=== PATIENT | female | born 1940 | race Caucasian/White ===

== ENCOUNTER 2020-07-07 11:52 | Inpatient (IN) | payer MEDICARE, OTHER ==
[~2020-07-07] VITALS: Ht 154.9 cm; Wt 68.9 kg
--- NOTE | ~2020-07-07 | OP ---
[address] [address] OPERATIVE REPORT Name: SUE BREAUX Room: [address] IN ..#: [id number] Admission: 07/07/20 Attend Phys: Genaro Kelly, Discharge: 07/10/20 Date of : 44 Report #: [id number] THIS REPORT FOR: //name// cc: Rubina Choi MD, Sarah Beth MD ~ CC: Rubina Kelly DICTATED BY: Alexander Serna DO DATE OF SERVICE: 07/08/2020 PREOPERATIVE DIAGNOSIS: Left comminuted intertrochanteric hip fracture. POSTOPERATIVE DIAGNOSIS: Left comminuted intertrochanteric hip fracture. PROCEDURE PERFORMED: Open reduction and internal fixation with a Molina gamma nail. SURGEON: Trey Skelton DO METEOROLOGY INSTRUCTOR: Alexander Serna DO ANESTHESIA: Spinal. ESTIMATED BLOOD LOSS: 75 mL. COMPLICATIONS: None. DISPOSITION: The patient is stable to PACU. IMPLANTS: Connie cephalomedullary nail. INDICATIONS FOR PROCEDURE: The patient is a 80-year-old female who sustained a mechanical fall from standing last night. She was evaluated at [facility] Emergency Room and found to have a left hip fracture. Recommendation was made for surgical fixation of left hip. Discussed the alternatives, benefits and risks including nonoperative management. The risks were detailed including but not limited to damage to neurovascular structures, continuation of pain, intraoperative fracture, implant failure, postoperative wound healing complications, long-term disability, possible need for repeat surgery in the future and any other imponderables secondary to being taken back to the operative suite such as MD, DVT or pulmonary embolism. The patient and her daughter expressed understanding and wished to proceed with surgery. DESCRIPTION OF PROCEDURE: The patient was met in [place] [address] OPERATIVE REPORT Name: SAEIDSUE Praveen Room: [address] IN [facility].#: [id number] Admission: 07/07/20 Attend Phys: Genaro Kelly, Discharge: 07/10/20 Date of : 44 Report #: [id number] correct side was marked. She was taken back to the operative suite and given a spinal anesthetic by the anesthesia team. She was placed in the supine position on the traction table. The left lower extremity was placed in the traction boot, right lower extremity was placed in a well-padded well leg lopez. All bony prominences were appropriately padded and the patient was secured to the table at multiple points. A preliminary reduction was performed with direct fluoroscopic visualization. This was felt to have adequate reduction of her comminuted intertrochanteric hip fracture. A timeout was performed in which correct patient, side, site, procedure to be performed and antibiotics in the form of 2 grams Ancef being administered was agreed upon by all present in participation. Predominant preliminary landmarks were marked out with radiographic evaluation. The longitudinal axis of the femoral shaft meeting at the greater trochanter. Approximately a 4 cm incision was made at the superior aspect of the greater trochanter. Sharp dissection was taken down to the tip of the greater trochanter. A starting portal was established with a smooth K-wire at the AP and lateral views. This was followed by the entry reamer. Long ball-tipped guidewire was introduced and subsequently reamed to 11.5 down to the isthmus. A 10 x 125 degree Connie gamma nail was inserted. This was felt to have appropriate positioning within the hip. A Nova was introduced from the superior incision to help reduce the apex anterior femoral neck angulation. The guidewire for the lag screw was then introduced and felt to be in appropriate position on the AP and lateral views. This was subsequently measured to be approximately 100. The reamer was introduced to a depth of 95 followed by 100 mm lag screw. A Nova was held on the anterior aspect of the femoral neck at all times to prevent my reduction. The compression was then performed across the fracture site. The proximal set screw was introduced and set. This was locked into place. Attention was then turned distally. The triple sleeve was introduced skin incision and the distal interlock screw was drilled and measured to be at 32.5. This was set in with the locking screw driver license examiner. Final x-rays were taken confirming good position of the cephalomedullary nail and appropriate dissection of the fracture site. All wounds were thoroughly irrigated and lavaged. All instruments were removed. All sponge and needle counts were correct x 2. A layered closure from the proximal incision was made from the iliotibial band, camper's fascia subcutaneous tissue, 2-0 Vicryl was then used for the subcutaneous layer distally as well followed by stapled skin closure Mepilex dressing. The patient was repositioned on the fracture table out of the fracture traction boot and then transferred to the patient cart in stable condition. She was brought to the postanesthesia care unit without issue. By: [id number] 1957Trey Skelton DO /naomie
[2020-07-07 11:53] VITALS: BP 129/62
[2020-07-07] MEDS ORDERED: PRAVACHOL40 MG PO (11:57)
[2020-07-07] MEDS ORDERED: LISINOPRIL-HCT1 EAC1 PO (11:57)
[2020-07-07 12:18] LABS: ABSOLUTE EOSINOPHILS 0.2 thou/uL (0.0-0.7); ABSOLUTE LYMPHOCYTES 4.3 thou/uL (0.8-5.3); ABSOLUTE MONOCYTES 0.9 thou/uL (0.0-1.2); ABSOLUTE NEUTROPHILS 3.6 thou/uL (1.6-8.1); BASOPHILS 0.4 %; EOSINOPHILS 1.9 %; HEMATOCRIT 35.4 % (37.0-47.0); HEMOGLOBIN 12.1 gm/dL (12.0-15.0); LYMPHOCYTES 47.8 %; MCH 30.4 pg (26.0-34.0); MCHC 34.1 g/dL (28.0-37.0); MCV 89.1 fL (80.0-100.0); MONOCYTES 9.5 %; MPV 8.2 fl. (7.2-11.1); NUCLEATED RBCS 0 /100WBC; PLATELET COUNT* 234 thou/uL (150-400); POLYS 40.4 %; RBC 3.98 mil/uL (4.20-5.00)
[2020-07-07 12:26] LABS: APTT 22.7 Seconds (25.0-31.3); CALCIUM 8.3 mg/dL (8.5-10.1); CREATININE 0.8 mg/dL (0.6-1.3); POTASSIUM 3.6 mmol/L (3.5-5.1); PROTIME 10.4 Seconds (9.20-11.50)
[2020-07-07 12:30] LABS: ALBUMIN 3.4 g/dL (3.4-5.0); TOTAL BILIRUBIN 0.3 mg/dL (<0.1-1.0); TOTAL PROTEIN 6.7 g/dL (6.4-8.2)
[2020-07-07 13:56] LABS: URINE BILIRUBIN NEGATIVE (Negative); URINE BLOOD NEGATIVE (Negative); URINE CLARITY CLEAR; URINE COLOR YELLOW; URINE GLUCOSE-RANDOM NEGATIVE (Negative); URINE KETONES NEGATIVE (Negative); URINE LEUKOCYTES-REFLEX NEGATIVE (Negative); URINE NITRITE-REFLEX NEGATIVE (Negative); URINE PROTEIN NEGATIVE (Negative); URINE SPECIFIC GRAVITY 1.015 (1.005-1.030); URINE UROBILINOGEN 0.2 E.U./dl (0.2-1.0)
--- NOTE | 2020-07-07 15:41 | EKG ---
[place] [address] ELECTROCARDIOGRAM REPORT Name: SUE BREAUX Room: [place] [address] ADM IN [facility]#: [id number] Admission: 07/07/20 Attend Phys: Genaro Diaz Discharge: Date of : 44 Date of Service: 07/07/20 1211 Report #: [id number] THIS REPORT FOR: //name// [facility] ED Test Date: 2020-07-07 Test Time: 12:11:23 Pat Name: SUE BREAUX Department: Room: [facility] Gender: F Mortgage Loan Assistant: CCD : 1940 Requested By: Davis Millan Order Number: [id number] MD: Nikos Harrington Measurements Intervals [place] Rate: 60 P: -88 IA: 177 QRS: 62 QRSD: 166 T: 67 QT: 427 QTc: 427 Interpretive Statements Sinus rhythm Baseline artifact no previous ECG available for comparison Electronically Signed On 07-07-2020 15:41:44 CDT by Nikos Harrington [email or web address] <ELECTRONICALLY SIGNED> By: Nikos Harrington MD, [facility] 07/07/20 1541 1211 121 Nikos Harrington MD, [facility] /EPI
[2020-07-07 20:00] VITALS: BP 173/82
[2020-07-07 23:04] VITALS: BP 131/70
[2020-07-07 23:30] VITALS: BP 137/66
[2020-07-08 04:05] LABS: HEMOGLOBIN 11.1 gm/dL (12.0-15.0); MCH 30.5 pg (26.0-34.0); MCHC 34.7 g/dL (28.0-37.0); MPV 8.1 fl. (7.2-11.1); RBC 3.64 mil/uL (4.20-5.00); RDW-CV 13.9 % (10.5-14.5); WBC 10.5 thou/uL (4.0-11.0)
[2020-07-08 04:48] LABS: ALBUMIN 3.1 g/dL (3.4-5.0); CALCIUM 8.1 mg/dL (8.5-10.1); CREATININE 0.8 mg/dL (0.6-1.3); MAGNESIUM 1.8 mg/dL (1.8-2.4); POTASSIUM 3.8 mmol/L (3.5-5.1); TOTAL BILIRUBIN 0.4 mg/dL (<0.1-1.0); TOTAL PROTEIN 6.2 g/dL (6.4-8.2)
[2020-07-08 06:35] VITALS: BP 167/79
[2020-07-08 08:00] VITALS: BP 138/83
[2020-07-08 20:15] VITALS: BP 124/59
[2020-07-09 03:59] LABS: HEMATOCRIT 26.3 % (37.0-47.0); HEMOGLOBIN 9.2 gm/dL (12.0-15.0); MCH 30.8 pg (26.0-34.0); MPV 8.5 fl. (7.2-11.1); RBC 2.99 mil/uL (4.20-5.00); RDW-CV 13.9 % (10.5-14.5)
[2020-07-09 04:14] LABS: CALCIUM 7.3 mg/dL (8.5-10.1); CREATININE 0.8 mg/dL (0.6-1.3); MAGNESIUM 1.8 mg/dL (1.8-2.4); POTASSIUM 3.6 mmol/L (3.5-5.1)
[2020-07-09 08:00] VITALS: BP 141/79
[2020-07-09 19:45] VITALS: BP 158/78
[2020-07-10 07:23] VITALS: BP 149/80
[2020-07-10] MEDS ORDERED: ELIQUIS5 MG PO (08:43)
[2020-07-10] MEDS ORDERED: HYDROCODON-ACE1 EAC7 PO (08:43)
[2020-07-10] MEDS ORDERED: HYDROMORPHO2 MG/1 M8 IVPUSH (08:43)
[2020-07-10 10:46] VITALS: BP 149/80
[2020-07-10] MEDS ORDERED: TRAMADOL 50 MG50 MG PO (11:25)
== END 2020-07-10 14:26 | DRG 481 ==
LOC: M.ERS 11:52 → M.TBA-ER 14:03 → M.3W 14:03
PROVIDERS: Family Medicine; ADMIT Family Medicine; ATTEND Family Medicine
PROC: 0QS706Z Reposition Left Upper Femur with Intramedullary Internal Fixation Device, Open Approach (ICD-10-PCS; principal; 2020-07-08)
DX: S72.142A Displaced intertrochanteric fracture of left femur, initial encounter for closed fracture (principal); E44.1 Mild protein-calorie malnutrition; E22.2 Syndrome of inappropriate secretion of antidiuretic hormone; D62 Acute posthemorrhagic anemia; Z20.828 Contact with and (suspected) exposure to other viral communicable diseases; W18.39XA Other fall on same level, initial encounter; I10 Essential (primary) hypertension; Z88.1 Allergy status to other antibiotic agents; Z68.28 Body mass index [BMI] 28.0-28.9, adult; Y93.89 Activity, other specified; Y92.89 Other specified places as the place of occurrence of the external cause; Y99.8 Other external cause status

== ENCOUNTER 2020-07-10 12:06 | Inpatient (IN) | payer MEDICARE, OTHER ==
[~2020-07-10] VITALS: Ht 157.5 cm; Wt 62.5 kg
[~2020-07-10 12:06] MED LIST: ELIQUIS5 MG PO; HYDROCODON-ACE1 EAC7 PO; HYDROMORPHO2 MG/1 M8 IVPUSH; LISINOPRIL-HCT1 EAC1 PO; PRAVACHOL40 MG PO; TRAMADOL 50 MG50 MG PO
[2020-07-10 15:00] VITALS: BP 148/67
[2020-07-10 20:09] VITALS: BP 138/59
[2020-07-11 04:06] LABS: HEMATOCRIT 21.2 % (37.0-47.0); HEMOGLOBIN 7.5 gm/dL (12.0-15.0); MCH 31.1 pg (26.0-34.0); MCHC 35.4 g/dL (28.0-37.0); MCV 87.8 fL (80.0-100.0); MPV 8.1 fl. (7.2-11.1); RBC 2.41 mil/uL (4.20-5.00); RDW-CV 13.7 % (10.5-14.5); WBC 9.7 thou/uL (4.0-11.0)
[2020-07-11 04:22] LABS: CALCIUM 7.5 mg/dL (8.5-10.1); CREATININE 0.7 mg/dL (0.6-1.3); POTASSIUM 3.4 mmol/L (3.5-5.1)
[2020-07-11 08:00] VITALS: BP 146/70
[2020-07-11 12:00] VITALS: BP 171/73
[2020-07-11 20:25] VITALS: BP 142/70
[2020-07-12 04:04] LABS: HEMATOCRIT 21.8 % (37.0-47.0); HEMOGLOBIN 7.7 gm/dL (12.0-15.0); MCH 30.8 pg (26.0-34.0); MCHC 35.3 g/dL (28.0-37.0); MCV 87.4 fL (80.0-100.0); MPV 7.5 fl. (7.2-11.1); RBC 2.49 mil/uL (4.20-5.00); RDW-CV 14.1 % (10.5-14.5); WBC 10.2 thou/uL (4.0-11.0)
[2020-07-12 08:15] VITALS: BP 134/84
[2020-07-12 13:38] VITALS: BP 153/71
[2020-07-12 18:55] VITALS: BP 137/59
[2020-07-12 19:00] VITALS: BP 135/71
[2020-07-13 07:57] VITALS: BP 136/67
[2020-07-13 19:00] VITALS: BP 139/58
[2020-07-14 07:57] VITALS: BP 125/58
[2020-07-14 19:00] VITALS: BP 134/62
[2020-07-15 08:11] VITALS: BP 135/95
[2020-07-15 13:57] LABS: HEMOGLOBIN 7.9 gm/dL (12.0-15.0); MCH 30.2 pg (26.0-34.0); MCHC 34.3 g/dL (28.0-37.0); MCV 88.1 fL (80.0-100.0); MPV 6.9 fl. (7.2-11.1); NUCLEATED RBCS 0 /100WBC; PLATELET COUNT* 353 thou/uL (150-400); RBC 2.61 mil/uL (4.20-5.00); RDW-CV 14.2 % (10.5-14.5); WBC 13.6 thou/uL (4.0-11.0)
[2020-07-15 14:11] LABS: ALBUMIN 2.5 g/dL (3.4-5.0); CALCIUM 7.3 mg/dL (8.5-10.1); CREATININE 0.6 mg/dL (0.6-1.3); TOTAL BILIRUBIN 0.9 mg/dL (<0.1-1.0); TOTAL PROTEIN 5.8 g/dL (6.4-8.2)
[2020-07-15 14:13] LABS: POTASSIUM 2.8 mmol/L (3.5-5.1)
[2020-07-15 14:43] LABS: ABSOLUTE EOSINOPHILS 0.1 thou/uL (0.0-0.7); ABSOLUTE LYMPHOCYTES 1.9 thou/uL (0.8-5.3); ABSOLUTE MONOCYTES 0.5 thou/uL (0.0-1.2); ANISOCYTOSIS Occasional; PLATELET ESTIMATE ADEQUATE; POLYCHROMASIA 1+
[2020-07-15 19:30] VITALS: BP 153/61
[2020-07-16 08:00] VITALS: BP 147/81
[2020-07-16 20:10] VITALS: BP 144/69
[2020-07-17 07:30] VITALS: BP 134/71
[2020-07-17 20:21] VITALS: BP 154/68
[2020-07-18 04:34] LABS: ABSOLUTE EOSINOPHILS 0.3 thou/uL (0.0-0.7); ABSOLUTE LYMPHOCYTES 2.2 thou/uL (0.8-5.3); ABSOLUTE NEUTROPHILS 6.7 thou/uL (1.6-8.1); BASOPHILS 0.4 %; EOSINOPHILS 2.7 %; HEMOGLOBIN 7.9 gm/dL (12.0-15.0); LYMPHOCYTES 21.8 %; MCH 30.7 pg (26.0-34.0); MCHC 34.3 g/dL (28.0-37.0); MCV 89.6 fL (80.0-100.0); MONOCYTES 9.9 %; NUCLEATED RBCS 0 /100WBC; PLATELET COUNT* 384 thou/uL (150-400); POLYS 65.2 %; RBC 2.57 mil/uL (4.20-5.00); RDW-CV 14.7 % (10.5-14.5); WBC 10.2 thou/uL (4.0-11.0)
[2020-07-18 04:50] LABS: ALBUMIN 2.5 g/dL (3.4-5.0); CALCIUM 7.4 mg/dL (8.5-10.1); CREATININE 0.6 mg/dL (0.6-1.3); POTASSIUM 4.1 mmol/L (3.5-5.1); TOTAL BILIRUBIN 0.7 mg/dL (<0.1-1.0); TOTAL PROTEIN 5.5 g/dL (6.4-8.2)
[2020-07-18 07:30] VITALS: BP 155/73
[2020-07-18 07:49] VITALS: BP 155/73
[2020-07-18 13:36] LABS: URINE BILIRUBIN NEGATIVE (Negative); URINE BLOOD NEGATIVE (Negative); URINE CLARITY CLEAR; URINE COLOR YELLOW; URINE GLUCOSE-RANDOM NEGATIVE (Negative); URINE KETONES NEGATIVE (Negative); URINE LEUKOCYTES-REFLEX NEGATIVE (Negative); URINE NITRITE-REFLEX NEGATIVE (Negative); URINE PROTEIN NEGATIVE (Negative); URINE SPECIFIC GRAVITY 1.015 (1.005-1.030); URINE UROBILINOGEN 0.2 E.U./dl (0.2-1.0)
[2020-07-18 20:22] VITALS: BP 127/55
[2020-07-19 07:30] VITALS: BP 136/65
[2020-07-19 19:36] VITALS: BP 163/73
[2020-07-20 07:46] VITALS: BP 138/67
[2020-07-20 14:18] LABS: HEMATOCRIT 26.4 % (37.0-47.0); HEMOGLOBIN 9.2 gm/dL (12.0-15.0)
[2020-07-20 20:00] VITALS: BP 137/58
[2020-07-21 07:33] VITALS: BP 128/58
[2020-07-21 20:00] VITALS: BP 131/54
[2020-07-22 08:00] VITALS: BP 131/56
[2020-07-22 13:01] LABS: CALCIUM 7.7 mg/dL (8.5-10.1); CREATININE 0.8 mg/dL (0.6-1.3); POTASSIUM 3.5 mmol/L (3.5-5.1)
[2020-07-22 19:40] VITALS: BP 139/55
[2020-07-23 08:00] VITALS: BP 136/64
[2020-07-23 20:17] VITALS: BP 141/61
[2020-07-24 08:30] VITALS: BP 143/67
[2020-07-24 19:30] VITALS: BP 141/69
[2020-07-25 07:54] VITALS: BP 138/62
[2020-07-25 10:57] VITALS: BP 138/62
[2020-07-25] MEDS ORDERED: NEURONTIN100 MG PO (12:43)
== END 2020-07-25 14:59 | disposition home health service (06) | DRG 536 ==
LOC: M.REH 12:06
PROVIDERS: Internal Medicine; Orthopaedic Surgery; ADMIT Physical Medicine & Rehabilitation; ATTEND Physical Medicine & Rehabilitation
DX: S72.142A Displaced intertrochanteric fracture of left femur, initial encounter for closed fracture (principal); E87.1 Hypo-osmolality and hyponatremia; D62 Acute posthemorrhagic anemia; E44.1 Mild protein-calorie malnutrition; I10 Essential (primary) hypertension; Z98.42 Cataract extraction status, left eye; Z98.41 Cataract extraction status, right eye; Z68.26 Body mass index [BMI] 26.0-26.9, adult; Y93.89 Activity, other specified; W18.39XA Other fall on same level, initial encounter; Y92.89 Other specified places as the place of occurrence of the external cause; Y99.8 Other external cause status; Z88.1 Allergy status to other antibiotic agents; Z88.8 Allergy status to other drugs, medicaments and biological substances; Z98.49 Cataract extraction status, unspecified eye